=== PATIENT | female | born 1990 | race Caucasian/White ===

== ENCOUNTER 2016-09-14 11:03 | Emergency (ER) | payer OTHER, MEDICAID ==
[2016-09-14] MEDS ORDERED: IBUPROFEN 800 MG TABLET PO STA (11:38)
[2016-09-14] MEDS ORDERED: IBUPROFEN 800 MG TABLET PO ONE (11:41)
== END 2016-09-14 11:49 | disposition home or self-care (01) ==
DX: M70.841 Other soft tissue disorders related to use, overuse and pressure, right hand (principal); X50.3XXA Overexertion from repetitive movements, initial encounter; Y92.219 Unspecified school as the place of occurrence of the external cause
CPT/HCPCS: 99283; A9270

== ENCOUNTER 2016-11-05 17:54 | Emergency (ER) | payer OTHER, MEDICAID | END 2016-11-05 21:28 | disposition home or self-care (01) | DX: N93.8 Other specified abnormal uterine and vaginal bleeding (principal) ==

== ENCOUNTER 2016-11-30 22:45 | Emergency (ER) | payer OTHER, MEDICAID | END 2016-12-01 00:37 | disposition home or self-care (01) | DX: J02.9 Acute pharyngitis, unspecified (principal) ==

== ENCOUNTER 2016-12-07 18:36 | Emergency (ER) | payer OTHER, MEDICAID ==
[2016-12-07] MEDS ORDERED: AMOX/CLAV 875 MG/125 MG TABLET PO STA (20:30)
[2016-12-07] MEDS ORDERED: AMOX/CLAV 875 MG/125 MG TABLET PO ONE (20:34)
== END 2016-12-07 20:39 | disposition home or self-care (01) ==
DX: J01.00 Acute maxillary sinusitis, unspecified (principal)
CPT/HCPCS: 87070; 87430; 99283; A9270

== ENCOUNTER 2017-04-12 21:33 | Emergency (ER) | payer MEDICAID, OTHER ==
--- NOTE | 2017-04-12 22:16 | ED Physician Documentation ---
History of Present Illness - Stated complaint Stated Complaint: R ARM BUMPS - Chief complaint Chief Complaint: Ext Problem - Additonal information Additional information: hx from pt 27 y/o f recent tattoo R ant FA developed small red bumps / pusutules possible 2/2 shaving hair for tattoo seen for same in another ER already and rx what sounds like bactroban cream most bumps better now two new that are a little worse Review of Systems Constitutional: denies: Fever, Chills : denies: Now EGA (denies) Skin: reports: Lesions PD PAST MEDICAL HISTORY - Past Medical History Cardiovascular: None Respiratory: None Neuro: Headache/migraine Endocrine/Autoimmune: None GI: None 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 : None HEENT: None Psych: None Musculoskeletal: None Derm: None - Past Surgical History Past Surgical History: No - Present Medications Home Medications: Ambulatory Orders Medication Instructions Recorded Confirmed Rizatriptan Benzoate [Maxalt] 5 mg PO .FREQ PRN 08/20/16 04/12/17 Clindamycin Phosphate 1 applic TP BID PRN #15 ml 04/12/17 - Allergies Allergies/Adverse Reactions: Allergies Allergy/AdvReac Type Severity Reaction Status Date / Time adhesive Allergy Rash Verified 04/12/17 21:41 hydrocodone bitartrate * Allergy Unknown Verified 04/12/17 21:41 [From Vicodin] - Social History Does the pt smoke?: No Smoking Status: Never smoker Does the pt drink ETOH?: No Does the pt have substance abuse?: No - Immunizations Immunizations are current?: Yes - POLST Patient has POLST: No PD ED PE NORMAL - Vitals Vital signs reviewed: Yes - Cardiac Cardiac: RRR - Respiratory Respiratory: No respiratory distress, Clear bilaterally - Derm Derm: Other (abt right forarm with two pustules, no sig abscess, no cellulitis) Results - Vitals Vitals: Vital Signs - 24 hr 04/12/17 21:37 Temperature 36.2 C L Heart Rate 68 Respiratory 18 Rate Blood Pressure 110/75 O2 Saturation 100 Oxygen O2 Source Room air Departure - Departure Disposition: 01 Home, Self Care Clinical Impression: Pustule Condition: Good Prescriptions: Clindamycin Phosphate 1 applic TP BID PRN #15 ml PRN Reason: skin infection Comments: Apply warm compresses to the pustules as discussed
[2017-04-12 22:26] VITALS: BP 103/70
== END 2017-04-12 22:24 | disposition home or self-care (01) ==
LOC: ED 21:33
DX: L08.9 Local infection of the skin and subcutaneous tissue, unspecified (principal)
CPT/HCPCS: 99283

== ENCOUNTER 2017-06-03 09:45 | Emergency (ER) | payer MEDICAID ==
[2017-06-03 09:53] VITALS: BP 97/63
--- NOTE | 2017-06-03 11:03 | ED Physician Documentation ---
History of Present Illness - Stated complaint Stated Complaint: SINUS PRESSURE - Chief complaint Chief Complaint: Heent - Additonal information Additional information: hx from pt 27 y/o f L maxillary sinus pain and pressure, PND cough no fever denies preg seen by me for sma ein past states she has not tried flonase sinus irrigation etc that I have recommended previously Review of Systems Constitutional: denies: Fever, Chills Ears: reports: Drainage/discharge. 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 : None HEENT: None Psych: None Musculoskeletal: None Derm: None - Past Surgical History Past Surgical History: No - Present Medications Home Medications: Ambulatory Orders Medication Instructions Recorded Confirmed Rizatriptan Benzoate [Maxalt] 5 mg PO .FREQ PRN 08/20/16 06/03/17 Amox/Clav 875/125 [Augmentin] 1 each PO Q12H #20 tablet 06/03/17 Fluticasone [Flonase] 1 sprays LÁZARO BID PRN #1 bottle 06/03/17 Pseudoephedrine [Sudafed] 30 mg PO Q6H PRN #20 tablet 06/03/17 - Allergies Allergies/Adverse Reactions: Allergies Allergy/AdvReac Type Severity Reaction Status Date / Time adhesive Allergy Rash Verified 04/12/17 21:41 hydrocodone bitartrate * Allergy Unknown Verified 04/12/17 21:41 [From Vicodin] - Social History Does the pt smoke?: No Smoking Status: Never smoker Does the pt drink ETOH?: No Does the pt have substance abuse?: No - Immunizations Immunizations are current?: Yes - POLST Patient has POLST: No PD ED PE NORMAL - Vitals Vital signs reviewed: Yes - HEENT HEENT: Ears normal, Moist mucous membranes, Pharynx benign, Other (L axillary sinus TTP and slight swelling, also L forntal but not swollen) - Neck Neck: Supple, no meningeal sign - Cardiac Cardiac: RRR - Respiratory Respiratory: No respiratory distress, Clear bilaterally Results - Vitals Vitals: Vital Signs - 24 hr 06/03/17 09:50 Temperature 36.6 C Heart Rate 73 Respiratory 16 Rate Blood Pressure 97/63 O2 Saturation 100 Oxygen O2 Source Room air Departure - Departure Disposition: 01 Home, Self Care Clinical Impression: Sinusitis Qualifiers: Sinusitis location: maxillary Chronicity: acute Recurrence: recurrent Qualified Code(s): J01.01 - Acute recurrent maxillary sinusitis Condition: Good Instructions: ED Sinusitis Abx Tx Prescriptions: Amox/Clav 875/125 [Augmentin] 1 each PO Q12H #20 tablet Fluticasone [Flonase] 1 sprays LÁZARO BID PRN #1 bottle PRN Reason: allergies Pseudoephedrine [Sudafed] 30 mg PO Q6H PRN #20 tablet PRN Reason: sinus congestion Comments: Most sinus infections do not need antibiotics Recommend you try several days of flonase sudafed and sinus irrigation. If you continue to have symptoms or the swelling over your left cheek worsens, then take the antibiotic Follow up with your PMD if not better - if you don't have a PMD try calling [facility] Return to the ER if worse
== END 2017-06-03 11:11 | disposition home or self-care (01) ==
LOC: ED 09:45
DX: J01.01 Acute recurrent maxillary sinusitis (principal)
CPT/HCPCS: 99283

== ENCOUNTER 2017-07-29 10:43 | Outpatient (CLI) | payer MEDICAID ==
[2017-07-29 11:17] LABS: BASOPHILS % (AUTO) 0.6 %; EOSINOPHILS # (AUTO) 0.2 10^3/uL (0.0-0.7); EOSINOPHILS % (AUTO) 2.4 %; HCT - HEMATOCRIT 37.4 % (37.0-47.0); HGB - HEMOGLOBIN 13.3 g/dL (12.0-16.0); LYMPHOCYTES # (AUTO) 2.1 10^3/uL (1.5-3.5); LYMPHOCYTES % (AUTO) 30.8 %; MEAN CORPUSCULAR HEMOGLOBIN 32.6 pg (27.0-31.0); MEAN CORPUSCULAR HGB CONC 35.5 g/dL (32.0-36.0); MEAN CORPUSCULAR VOLUME 91.8 fL (81.0-99.0); MEAN PLATELET VOLUME 6.7 fL (7.9-10.8); MONOCYTES # (AUTO) 0.6 10^3/uL (0.0-1.0); MONOCYTES % (AUTO) 9.3 %; NEUTROPHILS # (AUTO) 3.9 10^3/uL (1.5-6.6); NEUTROPHILS % (AUTO) 56.9 %; RED BLOOD COUNT 4.08 10^6/uL (4.20-5.40); RED CELL DISTRIBUTION WIDTH 12.3 % (12.0-15.0); UNCORRECTED WHITE BLOOD COUNT 6.9 x10^3/uL; WHITE BLOOD COUNT 6.9 x10^3/uL (4.8-10.8)
[2017-07-29 11:28] LABS: ALBUMIN/GLOBULIN RATIO 1.5 (1.0-2.2); BILIRUBIN,TOTAL 0.7 mg/dL (0.2-1.0); CALCIUM 9.3 mg/dL (8.5-10.3); CREATININE 0.7 mg/dL (0.4-1.0); POTASSIUM 3.4 mmol/L (3.5-5.0); TOTAL PROTEIN 7.7 g/dL (6.7-8.2)
[2017-07-29 12:08] LABS: THYROID STIMULATING HORMONE 1.56 uIU/mL (0.34-5.60)
[2017-07-29 12:14] LABS: PROLACTIN 7.01 ng/mL
[2017-07-29 12:36] LABS: FOLLICLE STIMULATING HORMONE 4.37 mIU/mL
[2017-07-29 12:37] LABS: LUTEINIZING HORMONE 2.55 mIU/mL
[2017-08-01 16:07] LABS: DHEA SULFATE 228 mcg/dL (18-391)
[2017-08-02 11:41] LABS: TEST RESULT REPORT
== END 2017-07-29 10:44 | disposition home or self-care (01) ==
LOC: LAB 10:43
PROVIDERS: ATTEND Registered Nurse
DX: N93.9 Abnormal uterine and vaginal bleeding, unspecified (principal)
CPT/HCPCS: 36415; 80053; 81599; 82627; 82670; 83001; 83002; 84146; 84402; 84403; 84436; 84439; 84443; 85025

== ENCOUNTER 2017-08-07 13:39 | Outpatient (CLI) | payer MEDICAID ==
[2017-08-07 15:47] LABS: FOLLICLE STIMULATING HORMONE 12.87 mIU/mL
[2017-08-07 15:48] LABS: LUTEINIZING HORMONE 10.29 mIU/mL
== END 2017-08-07 13:40 | disposition home or self-care (01) ==
LOC: LAB 13:39
PROVIDERS: ATTEND Registered Nurse
DX: N92.5 Other specified irregular menstruation (principal)
CPT/HCPCS: 36415; 82670; 83001; 83002

== ENCOUNTER 2017-08-08 15:29 | Outpatient (CLI) | payer MEDICAID ==
--- NOTE | 2017-08-09 09:09 | Ultrasound Report ---
PELVIC ULTRASOUND: 08/08/2017 HISTORY: Abnormal bleeding. LMP: 08/05/2017 COMPARISON: 11/05/2016 TECHNIQUE: Real-time scanning by the wire dropper with saved static images reviewed. Transabdominal approach for global evaluation, endovaginal approach for detailed assessment of the endometrium. FINDINGS: Uterus 6.4 x 3.2 x 5.2 cm, volume 56 mL. Endometrial echo thickness 4 mm. Normal uterine echotexture. No fibroids are identified. Right ovary 4.0 x 1.9 x 1.5 cm, volume 6 mL, normal echotexture and blood flow. Left ovary 3.1 x 1.8 x 2.1 cm, volume 6.1 mL, normal echotexture and blood flow. Free fluid: None. IMPRESSION: NEGATIVE PELVIC ULTRASOUND. NO SIGNIFICANT INTERVAL CHANGE COMPARED TO THE PRIOR NORMAL PELVIC ULTRASOUND OF 11/05/2016. JOB #: [id number] EXT JOB #: [id number] MARIAH
== END 2017-08-08 15:30 | disposition home or self-care (01) ==
LOC: DI 15:29
PROVIDERS: ATTEND Registered Nurse
DX: N93.9 Abnormal uterine and vaginal bleeding, unspecified (principal)
CPT/HCPCS: 76830; 76856

== ENCOUNTER 2017-09-06 21:24 | Outpatient (CLI) | payer MEDICAID ==
[2017-09-06 23:36] LABS: FOLLICLE STIMULATING HORMONE 12.68 mIU/mL
[2017-09-06 23:37] LABS: LUTEINIZING HORMONE 14.09 mIU/mL
== END 2017-09-06 21:25 | disposition home or self-care (01) ==
LOC: LAB 21:24
PROVIDERS: ATTEND Registered Nurse
DX: N92.5 Other specified irregular menstruation (principal)
CPT/HCPCS: 36415; 82670; 83001; 83002

== ENCOUNTER 2017-10-15 22:17 | Emergency (ER) | payer MEDICAID ==
[2017-10-15 22:24] VITALS: BP 112/79
[2017-10-15] MEDS ORDERED: PSEUDOEPHEDRINE 30 MG TABLET PO STA (22:33)
[2017-10-15] MEDS ORDERED: BENZONATATE 100 MG CAPSULE PO STA (22:33)
[2017-10-15] MEDS ORDERED: IBUPROFEN 400 MG TABLET PO STA (22:33)
--- NOTE | 2017-10-15 22:36 | ED Physician Documentation ---
PD HPI URI - Stated complaint Stated Complaint: CHILLS/COUGH/CONGESTION - Chief complaint Chief Complaint: Heent - History obtained from History obtained from: Patient - History of Present Illness Timing - onset: How many days ago (4) Timing details: Gradual onset, Still present Associated symptoms: Fever, Chills, Nasal congestion, Rhinorrhea, Sore throat, Dry cough Contributing factors: Sick contact Similar symptoms before: No diagnosis Recently seen: Not recently seen - Additional information Additional information: Patient is a 27 year old female with no significant past medical history who is presenting to the emergency department for uri symptoms for the last 4 days. 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 Review of Systems Constitutional: reports: Chills, Myalgias. denies: Fever Eyes: denies: Discharge, Irritation Ears: reports: Ear pain Nose: reports: Rhinorrhea / runny nose, Congestion, Sinus pressure / pain Throat: reports: Sore throat Cardiac: denies: Chest pain / pressure, Palpitations Respiratory: reports: Cough. denies: Wheezing GI: reports: Nausea. 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 : None HEENT: None Psych: None Musculoskeletal: None Derm: None - Past Surgical History Past Surgical History: No - Present Medications Home Medications: Ambulatory Orders Medication Instructions Recorded Confirmed Rizatriptan Benzoate [Maxalt] 5 mg PO .FREQ PRN 08/20/16 09/26/17 Fluticasone [Flonase] 1 sprays LÁZARO BID PRN #1 bottle 06/03/17 09/26/17 Pseudoephedrine [Sudafed] 30 mg PO Q6H PRN #20 tablet 06/03/17 09/26/17 Benzonatate [Tessalon Perle] 100 mg PO TID #20 capsule 10/15/17 Ondansetron Odt [Zofran] 4 mg TL Q6H PRN #20 tablet 10/15/17 - Allergies Allergies/Adverse Reactions: Allergies Allergy/AdvReac Type Severity Reaction Status Date / Time adhesive Allergy Rash Verified 10/15/17 22:24 hydrocodone bitartrate * Allergy Unknown Verified 10/15/17 22:24 [From Vicodin] - Social History Does the pt smoke?: No Smoking Status: Never smoker Does the pt drink ETOH?: No Does the pt have substance abuse?: No - Immunizations Immunizations are current?: Yes - POLST Patient has POLST: No PD ED PE NORMAL - Vitals Vital signs reviewed: Yes - General General: Alert and oriented X 3 - HEENT HEENT: Atraumatic, PERRL - Neck Neck: Supple, no meningeal sign - Cardiac Cardiac: RRR, No murmur - Respiratory Respiratory: No respiratory distress - Abdomen Abdomen: Soft, Non tender, Non distended - Derm Derm: Normal color, Warm and dry, No rash - Extremities Extremities: No deformity - Neuro Neuro: Alert and oriented X 3, No motor deficit, Normal speech - Psych Psych: Normal mood PD ED PE EXPANDED - HEENT HEENT: R TM red, L TM red, Nasal congestion, Rhinorrhea, Pharyngeal erythema. No: R TM bulging, R TM retracted, L TM bulging, L TM retracted Results - Vitals Vitals: Vital Signs - 24 hr 10/15/17 22:23 Temperature 37.4 C Heart Rate 89 Respiratory 20 Rate Blood Pressure 112/79 O2 Saturation 100 Oxygen O2 Source Room air PD MEDICAL DECISION MAKING - ED course Complexity details: reviewed old records, reviewed results, re-evaluated patient , considered differential, d/w patient ED course: Patient was seen and examined at bedside. patient was treated with pseudophed, ibuprofen and tylenol. Patient was not septic appearing and was able to tolerate PO without difficulty. patient required no further inpatient work up and was stable for discharge with outpatient follow up. Departure - Departure Disposition: 01 Home, Self Care Clinical Impression: Upper respiratory infection, viral Condition: Good Instructions: ED Viral Syndrome Follow-Up: Ev Huddleston, MICKY, SALES PERFORMANCE ANALYST [Provider Admit Priv/Credential] - Prescriptions: Benzonatate [Tessalon Perle] 100 mg PO TID #20 capsule Ondansetron Odt [Zofran] 4 mg TL Q6H PRN #20 tablet PRN Reason: Nausea / Vomiting Comments: Your symptoms are likely viral in nature and should be self limited. You can take over the counter cold a flu medication. You should increase your fluid intake to at least 100oz a day. You should also make sure you get plenty of rest. You should follow up with your doctor on tuesday if your symptoms persist. You may return to the emergency department at any time for new, worsening or uncontrollable symptoms.
== END 2017-10-15 22:51 | disposition home or self-care (01) ==
LOC: ED 22:17
DX: J06.9 Acute upper respiratory infection, unspecified (principal); B97.89 Other viral agents as the cause of diseases classified elsewhere
CPT/HCPCS: 87275; 87276; 99283; A9270

== ENCOUNTER 2017-11-01 09:40 | Emergency (ER) | payer MEDICAID ==
[2017-11-01 09:54] VITALS: BP 106/72
--- NOTE | 2017-11-01 10:43 | ED Physician Documentation ---
PD HPI SKIN - Stated complaint Stated Complaint: RASH ALL OVER - Chief complaint Chief Complaint: Allergic Rx - History obtained from History obtained from: Patient - History of Present Illness Timing - onset: Today Timing - duration: Hours Timing - details: Gradual onset, Still present Location: RUE, LUE, RLE, LLE Quality / character: Itchy, Discolored Associated symptoms: Fever Contributing factors: Exposed to soap / lotion Similar symptoms before: Has not had sx before Recently seen: Not recently seen - Additional information Additional information: 27-year-old female was at home last night when her child vomited and she used some [place] directly out of the bottle onto a rag wiped on the floor in bare feet and this morning she is awake and with some erythema to the hands and feet with itching. She does not have it in other places. Review of Systems Constitutional: reports: Fever Nose: denies: Congestion Throat: denies: Sore throat Respiratory: denies: Dyspnea, Cough GI: denies: Nausea, Vomiting : denies: Dysuria, Frequency Skin: reports: Rash Musculoskeletal: reports: Extremity pain. 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 : None HEENT: None Psych: None Musculoskeletal: None Derm: None - Past Surgical History Past Surgical History: No - Present Medications Home Medications: Ambulatory Orders Medication Instructions Recorded Confirmed Rizatriptan Benzoate [Maxalt] 5 mg PO .FREQ PRN 08/20/16 09/26/17 Fluticasone [Flonase] 1 sprays LÁZARO BID PRN #1 bottle 06/03/17 09/26/17 - Allergies Allergies/Adverse Reactions: Allergies Allergy/AdvReac Type Severity Reaction Status Date / Time adhesive Allergy Rash Verified 11/01/17 09:54 hydrocodone bitartrate * Allergy Unknown Verified 11/01/17 09:54 [From Vicodin] - Social History Does the pt smoke?: No Smoking Status: Never smoker Does the pt drink ETOH?: No Does the pt have substance abuse?: No - Immunizations Immunizations are current?: Yes - POLST Patient has POLST: No PD ED PE NORMAL - Vitals Vital signs reviewed: Yes (Tachycardia) - General General: Alert and oriented X 3, No acute distress, Well developed/nourished - HEENT HEENT: Atraumatic, PERRL, EOMI - Respiratory Respiratory: No respiratory distress - Derm Derm: Normal color, Warm and dry, Other (Thers is a fine erythema to the dorsum of the hands bilaterally and to the dorsum of the feet bilaterally . The erythema is plaque like and non-specific consistent with a contact dermatitis. ) - Extremities Extremities: No deformity, No edema - Neuro Neuro: No motor deficit, No sensory deficit Eye Opening: Spontaneous Motor: Obeys Commands Verbal: Oriented GCS Score: 15 - Psych Psych: Normal mood, Normal affect Results - Vitals Vitals: Vital Signs - 24 hr 11/01/17 09:51 Temperature 37.2 C Heart Rate 105 H Respiratory 12 Rate Blood Pressure 106/72 O2 Saturation 100 Oxygen O2 Source Room air PD MEDICAL DECISION MAKING - ED course Complexity details: considered differential, d/w patient ED course: 27-year-old female with what appears to be a contact dermatitis. She is instructed to wash her hands and feet thoroughly and apply hydrocortisone cream. She will use some Benadryl today for the itching. Departure - Departure Disposition: 01 Home, Self Care Clinical Impression: Contact dermatitis Qualifiers: Contact dermatitis type: irritant Contact dermatitis trigger: detergents Qualified Code(s): L24.0 - Irritant contact dermatitis due to detergents Condition: Stable Instructions: ED Dermatitis Contact Follow-Up: [facility] [Provider Group] Forms: Activity restrictions
== END 2017-11-01 10:47 | disposition home or self-care (01) ==
LOC: ED 09:40
DX: L24.0 Irritant contact dermatitis due to detergents (principal)
CPT/HCPCS: 99282; 99283

== ENCOUNTER 2018-03-15 12:26 | Outpatient (CLI) | payer MEDICAID | END 2018-03-15 12:27 | disposition home or self-care (01) | LOC: LAB 12:26 | PROVIDERS: ATTEND Registered Nurse | DX: N91.1 Secondary amenorrhea (principal) | CPT/HCPCS: 36415; 84144; 84702 ==

== ENCOUNTER 2018-03-21 20:52 | Emergency (ER) | payer MEDICAID ==
[2018-03-21 21:52] LABS: BILIRUBIN,URINE NEGATIVE (NEGATIVE); GLUCOSE, URINE (UA) NEGATIVE (NEGATIVE); KETONES,URINE (UA) NEGATIVE (NEGATIVE); LEUKOCYTE ESTERASE, URINE TRACE (NEGATIVE); NITRITE,URINE NEGATIVE (NEGATIVE); OCCULT BLOOD,URINE NEGATIVE (NEGATIVE); PH,URINE 6.5 PH (5.0-7.5); PROTEIN,URINE NEGATIVE (NEGATIVE); UROBILINOGEN,URINE 0.2 (NORMAL) E.U./dL (NORMAL)
[2018-03-21 21:56] LABS: CLARITY,URINE CLEAR (CLEAR)
[2018-03-21 21:57] LABS: HCG UR QUAL POSITIVE
[2018-03-21 22:06] LABS: BACTERIA,URINE Many /HPF (None Seen); RBC,URINE None Seen /HPF (0-5); SQUAMOUS EPITHELIAL CELL,UR MANY Squamous (<= Few)
[2018-03-21] MEDS ORDERED: NITROFURANTOIN MACRO 100 MG CAPSULE PO STA (22:30)
[2018-03-21] MEDS ORDERED: ACETAMINOPHEN 325 MG TABLET PO STA (22:30)
--- NOTE | 2018-03-21 22:44 | ED Physician Documentation ---
PD HPI FEMALE - Stated complaint Stated Complaint: BACK PX/5 WKS PREG - Chief complaint Chief Complaint: Back Pain - History obtained from History obtained from: Patient - History of Present Illness Timing - onset: Yesterday Timing - details: Gradual onset, Still present Associated symptoms: Back pain. No: Fever, Abdominal pain, Vaginal bleeding, Vaginal discharge Contributing factors: Similar symptoms before: Treatment Recently seen: Not recently seen - Additional information Additional information: Patient is a 28 year old female approximately 5 weeks who is presenting to the emergency department for low back pain and dysuria. Patient symptoms started yesterday. patient states that she has had a uti in the past and it started like this. patient denies any fever, chills, nausea, vomiting or abdominal pain. Patient has had routine OB care. Upon initial evaluation in the emergency department patient is well appearing. Review of Systems Ten Systems: 10 systems reviewed and negative Constitutional: denies: Fever, Chills GI: denies: Vomiting : reports: Dysuria, Frequency. 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 HEENT: None Psych: None Musculoskeletal: None Derm: None - Past Surgical History Past Surgical History: No - Present Medications Home Medications: Ambulatory Orders Medication Instructions Recorded Confirmed Rizatriptan Benzoate [Maxalt] 5 mg PO .FREQ PRN 08/20/16 09/26/17 Fluticasone [Flonase] 1 sprays LÁZARO BID PRN #1 bottle 06/03/17 09/26/17 Nitrofurantoin Monohyd/M-Cryst 100 mg PO BID 5 Days capsule 03/21/18 [Macrobid 100 mg Capsule] - Allergies Allergies/Adverse Reactions: Allergies Allergy/AdvReac Type Severity Reaction Status Date / Time adhesive Allergy Rash Verified 11/01/17 09:54 hydrocodone bitartrate * Allergy Unknown Verified 11/01/17 09:54 [From Vicodin] - Social History Does the pt smoke?: No Smoking Status: Never smoker Does the pt drink ETOH?: No Does the pt have substance abuse?: No - Immunizations Immunizations are current?: Yes - POLST Patient has POLST: No PD ED PE NORMAL - Vitals Vital signs reviewed: Yes - General General: Alert and oriented X 3, No acute distress - HEENT HEENT: Atraumatic, Moist mucous membranes - Cardiac Cardiac: RRR, No murmur - Respiratory Respiratory: No respiratory distress - Abdomen Abdomen: Soft, Non tender, Non distended - Derm Derm: Normal color, Warm and dry - Extremities Extremities: No deformity - Neuro Neuro: Alert and oriented X 3 PD ED PE EXPANDED - Back Back: No: CVA TTP right, CVA TTP left Results - Vitals Vitals: Vital Signs - 24 hr 03/21/18 21:25 Temperature 36.5 C Heart Rate 77 Respiratory 16 Rate Blood Pressure 107/72 O2 Saturation 100 Oxygen O2 Source Room air - Labs Labs: Laboratory Tests 03/21/18 21:40 Urine Color YELLOW Urine Clarity CLEAR Urine pH 6.5 Ur Specific [place] 1.020 Urine Protein NEGATIVE Urine Glucose (UA) NEGATIVE Urine Ketones NEGATIVE Urine Occult Blood NEGATIVE Urine Nitrite NEGATIVE Urine Bilirubin NEGATIVE Urine Urobilinogen 0.2 (NORMAL) Ur Leukocyte Esterase TRACE H Urine RBC None Seen Urine WBC 0-3 Ur Squamous Epith Cells MANY Squamous H Urine Bacteria Many H Ur Microscopic Review INDICATED Urine Culture Comments NOT INDICATED Urine HCG, Qual POSITIVE PD MEDICAL DECISION MAKING - ED course Complexity details: reviewed old records, reviewed results, re-evaluated patient , considered differential, d/w patient ED course: Patient was seen and examined at bedside. patient was well appearing and in no distress. patient was tolerating PO without difficulty. patient was treated with macrobid and tylenol. patient was given detailed discharge and follow up instructions and was stable for outpatient follow up. - Sepsis Event Vital Signs: Vital Signs - 24 hr 03/21/18 21:25 Temperature 36.5 C Heart Rate 77 Respiratory 16 Rate Blood Pressure 107/72 O2 Saturation 100 Oxygen O2 Source Room air Departure - Departure Disposition: 01 Home, Self Care Clinical Impression: Urinary tract infection during Condition: Good Instructions: ED UTI Cystitis Female Follow-Up: Ev Huddleston CNM, INSTRUCTOR WATCH ASSEMBLY [Primary Care Provider] - Within 3 Days Prescriptions: Nitrofurantoin Monohyd/M-Cryst [Macrobid 100 mg Capsule] 100 mg PO BID 5 Days capsule Comments: Your symptoms today are being caused by a urinary tract infection. you had your first dose of antibiotics today and you will need to be on them for the next 5 days. it is also important that you stay well hydrated, doubling your fluid intake to at least 100oz of water a day. you can take tylenol as needed for pain. you should follow up with your flame planer this week. you should return to the emergency department at any time for new, worsening or uncontrollable symptoms.
[2018-03-21 23:33] VITALS: BP 111/76
== END 2018-03-21 22:55 | disposition home or self-care (01) ==
LOC: ED 20:52
DX: O99.89 Other specified diseases and conditions complicating pregnancy, childbirth and the puerperium (principal); M54.9 Dorsalgia, unspecified; Z3A.01 Less than 8 weeks gestation of pregnancy
CPT/HCPCS: 81001; 81025; 99283; A9270; 81003; 87086

== ENCOUNTER 2018-04-02 09:18 | Outpatient (CLI) | payer MEDICAID ==
--- NOTE | 2018-04-02 18:26 | Ultrasound Report ---
Procedure Date: 04/02/2018 Accession Number: [id number] / [id number] Procedure: US - OB First Trimester CPT Code: FULL RESULT: EXAM: FIRST TRIMESTER OBSTETRIC ULTRASOUND (Less than 11 weeks) EXAM DATE: 04/02/2018 11:53 AM. CLINICAL HISTORY: , dating. LMP: 02/12/2018. COMPARISONS: None. TECHNIQUE: Transabdominal and transvaginal ultrasound examination with static image documentation. ASSESSMENT: Gestational Sac: Single intrauterine. Mean gestational sac diameter: 18 mm. Embryo: CRL (crown-rump length) 9 mm = 7 weeks 0 days. Cardiac activity: 142 beats per minute. Yolk sac: 3 mm. Amniotic fluid: Not accurately assessed at this gestational age. Early placenta: Not visible at this gestational age. Other: Questionable small perigestational fluid collection demonstrated. MATERNAL STRUCTURES: Uterus: Anteverted. Unremarkable. Cervix: Closed. Right Ovary/Adnexa: Unremarkable. Left Ovary/Adnexa: Unremarkable. Free Fluid: None. Other: None. IMPRESSION: 1. Single viable intrauterine at EGA 7 weeks 0 days with MAYA 11/19/2018 based on crown-rump length, which is concordant with clinical dates. 2. Assigned dating is MYAA 11/19/2018 based on reported last menstrual period. RADIA
== END 2018-04-02 09:19 | disposition home or self-care (01) ==
LOC: DI 09:18
PROVIDERS: ATTEND Registered Nurse
DX: Z36.9 Encounter for antenatal screening, unspecified (principal)
CPT/HCPCS: 76801; 76817

== ENCOUNTER 2018-04-14 17:03 | Emergency (ER) | payer MEDICAID ==
[2018-04-14] MEDS ORDERED: ONDANSETRON ODT 4 MG TABLET TL STA (17:52)
--- NOTE | 2018-04-14 17:53 | ED Physician Documentation ---
PD HPI NVD - Stated complaint Stated Complaint: 8 WKS PREG/SOURAV/HEADACHE - Chief complaint Chief Complaint: General - History obtained from History obtained from: Patient - History of Present Illness Timing - onset: How many months ago (1) Timing - details: Waxing and waning Contributing factors: Other ( at 8 1/2 weeks gestation.) - Additonal information Additional information: The patient is a 28-year-old female, 8 weeks gestation, who presents with nausea and vomiting occur intermittently for the past month. She has had 2 episodes of vomiting today. She denies abdominal pain, fever, cough, or dysuria. She is receiving care at the [facility]. Review of Systems Constitutional: denies: Fever Nose: denies: Congestion Cardiac: denies: Chest pain / pressure Respiratory: denies: Dyspnea, Cough GI: reports: Nausea, Vomiting. denies: Abdominal Pain : reports: Now EGA (8 wks gestation.). 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 : None HEENT: None Psych: None Musculoskeletal: None Derm: None - Past Surgical History Past Surgical History: No - Present Medications Home Medications: Ambulatory Orders Medication Instructions Recorded Confirmed Rizatriptan Benzoate [Maxalt] 5 mg PO .FREQ PRN 08/20/16 09/26/17 Fluticasone [Flonase] 1 sprays LÁZARO BID PRN #1 bottle 06/03/17 09/26/17 Nitrofurantoin Monohyd/M-Cryst 100 mg PO BID 5 Days capsule 03/21/18 [Macrobid 100 mg Capsule] Ondansetron Odt [Zofran] 4 mg TL Q6H PRN #10 tablet 04/14/18 - Allergies Allergies/Adverse Reactions: Allergies Allergy/AdvReac Type Severity Reaction Status Date / Time adhesive Allergy Rash Verified 04/14/18 17:29 hydrocodone bitartrate * Allergy Unknown Verified 04/14/18 17:29 [From Vicodin] - Social History Does the pt smoke?: No Smoking Status: Never smoker Does the pt drink ETOH?: No Does the pt have substance abuse?: No - Immunizations Immunizations are current?: Yes - POLST Patient has POLST: No PD ED PE NORMAL - Vitals Vital signs reviewed: Yes (normal) - General General: Alert and oriented X 3, Well developed/nourished - HEENT HEENT: Atraumatic, Moist mucous membranes - Neck Neck: No adenopathy - Cardiac Cardiac: RRR - Respiratory Respiratory: No respiratory distress, Clear bilaterally - Abdomen Abdomen: Soft, Non tender - Back Back: No CVA TTP - Derm Derm: No rash - Extremities Extremities: No edema, No calf tenderness / cord - Neuro Neuro: Alert and oriented X 3, No motor deficit, Normal speech Results - Vitals Vitals: Oxygen O2 Source Room air - Labs Labs: Laboratory Tests 04/14/18 17:40 Urine Color YELLOW Urine Clarity CLEAR Urine pH 5.5 Ur Specific [place] >=1.030 H Urine Protein NEGATIVE Urine Glucose (UA) NEGATIVE Urine Ketones NEGATIVE Urine Occult Blood NEGATIVE Urine Nitrite NEGATIVE Urine Bilirubin NEGATIVE Urine Urobilinogen 0.2 (NORMAL) Ur Leukocyte Esterase NEGATIVE Ur Microscopic Review NOT INDICATED Urine Culture Comments NOT INDICATED Urine HCG, Qual POSITIVE PD MEDICAL DECISION MAKING - ED course Complexity details: reviewed results, re-evaluated patient, considered differential, d/w patient, d/w family ED course: The patient's presentation is most consistent with vomiting associated with . Her presentation does not suggest volume depletion, acute surgical abdomen, or urinary tract infection. Urinalysis is negative. Treatment in the emergency department included administration of Zofran 4 mg orally. This relieved the patient's symptoms. She is being discharged with prescription for Zofran. I discussed with the patient and her mother the diagnosis, symptomatic treatment and outpatient follow-up, as well as potentially worrisome signs or symptoms that should prompt reevaluation in the emergency department. - Sepsis Event Vital Signs: Oxygen O2 Source Room air Departure - Departure Disposition: 01 Home, Self Care Clinical Impression: Vomiting of , First trimester Condition: Stable Instructions: ED Preg Morning Sickness Follow-Up: Ev Huddleston CNM, HAY BUCKLER [Primary Care Provider] - Prescriptions: Ondansetron Odt [Zofran] 4 mg TL Q6H PRN #10 tablet PRN Reason: Nausea / Vomiting Comments: Drink plenty of fluids. You can use Zofran as prescribed if needed for nausea. Follow up with your rotary drill operator helper as planned. Return to the emergency department if you develop increasing abdominal pain, persistent vomiting, or otherwise worsening symptoms. Discharge Date/Time: 04/14/18 18:38
[2018-04-14 18:26] LABS: BILIRUBIN,URINE NEGATIVE (NEGATIVE); GLUCOSE, URINE (UA) NEGATIVE (NEGATIVE); KETONES,URINE (UA) NEGATIVE (NEGATIVE); LEUKOCYTE ESTERASE, URINE NEGATIVE (NEGATIVE); NITRITE,URINE NEGATIVE (NEGATIVE); OCCULT BLOOD,URINE NEGATIVE (NEGATIVE); PH,URINE 5.5 PH (5.0-7.5); PROTEIN,URINE NEGATIVE (NEGATIVE); UROBILINOGEN,URINE 0.2 (NORMAL) E.U./dL (NORMAL)
[2018-04-14 18:27] LABS: CLARITY,URINE CLEAR (CLEAR); HCG UR QUAL POSITIVE
[2018-04-14 18:40] VITALS: BP 106/68
== END 2018-04-14 18:38 | disposition home or self-care (01) ==
LOC: ED 17:03
DX: O21.9 Vomiting of pregnancy, unspecified (principal); Z3A.08 8 weeks gestation of pregnancy
CPT/HCPCS: 81003; 81025; 99283; Q0162; 80053; 81001; 83690; 84702; 85025; 87086

== ENCOUNTER 2018-04-18 09:51 | Outpatient (CLI) | payer MEDICAID ==
[2018-04-18 16:14] LABS: MUDS CUTOFF CONCENTRATIONS CUTOFF CONC BELOW:
[2018-04-18 16:36] LABS: AMPHETAMINE SCREEN,URINE NEGATIVE (NEGATIVE); BENZODIAZEPINES SCREEN, URINE NEGATIVE (NEGATIVE); COCAINE SCREEN URINE NEGATIVE (NEGATIVE); METHADONE SCREEN, URINE NEGATIVE (NEGATIVE); METHAMPHETAMINES SCREEN, URINE NEGATIVE (NEGATIVE); OPIATE SCREEN, URINE NEGATIVE (NEGATIVE); OXYCODONE SCREEN, URINE NEGATIVE (NEGATIVE); PROPOXYPHENE SCREEN, URINE NEGATIVE (NEGATIVE); TRICYCLIC ANTIDEPRESSANT,URINE NEGATIVE (NEGATIVE)
== END 2018-04-18 09:52 | disposition home or self-care (01) ==
LOC: LAB.R 09:51
PROVIDERS: ATTEND Registered Nurse
DX: Z36.9 Encounter for antenatal screening, unspecified (principal)
CPT/HCPCS: 80306; 87491; 87591

== ENCOUNTER 2018-04-18 09:59 | Outpatient (CLI) | payer MEDICAID ==
[2018-04-18 10:39] LABS: BASOPHILS # (AUTO) 0.1 10^3/uL (0.0-0.1); BASOPHILS % (AUTO) 0.8 %; EOSINOPHILS # (AUTO) 0.1 10^3/uL (0.0-0.7); EOSINOPHILS % (AUTO) 1.1 %; HGB - HEMOGLOBIN 11.7 g/dL (12.0-16.0); LYMPHOCYTES # (AUTO) 1.3 10^3/uL (1.5-3.5); LYMPHOCYTES % (AUTO) 16.9 %; MEAN CORPUSCULAR HGB CONC 36.6 g/dL (32.0-36.0); MEAN CORPUSCULAR VOLUME 90.2 fL (81.0-99.0); MEAN PLATELET VOLUME 6.7 fL (7.9-10.8); MONOCYTES # (AUTO) 0.5 10^3/uL (0.0-1.0); MONOCYTES % (AUTO) 6.8 %; NEUTROPHILS # (AUTO) 5.8 10^3/uL (1.5-6.6); NEUTROPHILS % (AUTO) 74.4 %; PLT - PLATELET COUNT 283 10^3/uL (130-450); RED BLOOD COUNT 3.55 10^6/uL (4.20-5.40); RED CELL DISTRIBUTION WIDTH 12.4 % (12.0-15.0); WHITE BLOOD COUNT 7.8 x10^3/uL (4.8-10.8)
[2018-04-18 10:47] LABS: BILIRUBIN,URINE NEGATIVE (NEGATIVE); GLUCOSE, URINE (UA) NEGATIVE (NEGATIVE); KETONES,URINE (UA) NEGATIVE (NEGATIVE); LEUKOCYTE ESTERASE, URINE TRACE (NEGATIVE); NITRITE,URINE NEGATIVE (NEGATIVE); OCCULT BLOOD,URINE NEGATIVE (NEGATIVE); PROTEIN,URINE NEGATIVE (NEGATIVE); UROBILINOGEN,URINE 0.2 (NORMAL) E.U./dL (NORMAL)
[2018-04-18 11:00] LABS: CLARITY,URINE HAZY (CLEAR)
[2018-04-18 11:04] LABS: BACTERIA,URINE Moderate /HPF (None Seen); MUCUS,URINE Few Strands; RBC,URINE None Seen /HPF (0-5); SQUAMOUS EPITHELIAL CELL,UR MANY Squamous (<= Few)
[2018-04-19 08:37] LABS: HEPATITIS C ANTIBODY NON-REACTIVE (NON-REACTIVE)
[2018-04-19 13:11] LABS: HEPATITIS B SURFACE ANTIGEN NON-REACTIVE (NON-REACTIVE)
[2018-04-19 14:01] LABS: HIV AG/AB 4TH GEN NON-REACTIVE (NON-REACTIVE)
== END 2018-04-18 10:00 | disposition home or self-care (01) ==
LOC: LAB 09:59
PROVIDERS: ATTEND Registered Nurse
DX: Z36.9 Encounter for antenatal screening, unspecified (principal)
CPT/HCPCS: 36415; 80306; 81001; 81599; 85025; 86592; 86762; 86803; 86850; 86900; 86901; 87340; 87389; 87491; 87591

== ENCOUNTER 2018-05-06 19:57 | Emergency (ER) | payer MEDICAID ==
[2018-05-06 20:02] VITALS: BP 97/72
--- NOTE | 2018-05-06 20:10 | ED Physician Documentation ---
PD HPI ABD PAIN - Stated complaint Stated Complaint: FEMALE /11WKS OB - Chief complaint Chief Complaint: General - History obtained from History obtained from: Patient - History of Present Illness Timing - onset: How many weeks ago (1 week of firm/small BMs and only 2 of them this past week.) Timing - duration: Weeks (1) Timing - details: Gradual onset, Still present Quality: Cramping (intermittently lower abd), Aching (some discomfort rectally without lumps nor bleeding with wiping.). No: Fullness/distended Radiation: No: Left flank, Right flank Improved by: BM Worsened by: No: Eating Associated symptoms: Constipation. No: Fever, Nausea, Vomiting, Diarrhea, Loss of appetite Similar symptoms before: Has not had sx before Recently seen: Not recently seen Review of Systems Constitutional: denies: Fever, Myalgias Nose: denies: Rhinorrhea / runny nose, Congestion Throat: denies: Sore throat Respiratory: denies: Cough GI: reports: Nausea, Constipation. denies: Abdominal Pain, Vomiting, Diarrhea, Hematemesis, Bloody / black stool : reports: Now EGA (10 weeks). 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 : None HEENT: None Psych: None Musculoskeletal: None Derm: None - Past Surgical History Past Surgical History: No - Present Medications Home Medications: Ambulatory Orders Medication Instructions Recorded Confirmed Ondansetron Odt [Zofran] 4 mg TL Q6H PRN #10 tablet 04/14/18 Docusate Sodium 100 mg PO DAILY #30 capsule 05/06/18 Folic Acid 1 mg PO DAILY #30 tablet 05/06/18 Glycerin Adult Supp [Glycerin] 1 each [place] ONCE PRN #1 bottle 05/06/18 Pyridoxine HCl [Vitamin B-6] 25 mg PO BID #60 tablet 05/06/18 - Allergies Allergies/Adverse Reactions: Allergies Allergy/AdvReac Type Severity Reaction Status Date / Time adhesive Allergy Rash Verified 05/06/18 20:02 hydrocodone bitartrate * Allergy Unknown Verified 05/06/18 20:02 [From Vicodin] - Social History Does the pt smoke?: No Smoking Status: Never smoker Does the pt drink ETOH?: No Does the pt have substance abuse?: No - Immunizations Immunizations are current?: Yes - POLST Patient has POLST: No PD ED PE NORMAL - Vitals Vital signs reviewed: Yes - General General: Alert and oriented X 3, No acute distress, Well developed/nourished - HEENT HEENT: Pharynx benign - Neck Neck: Supple, no meningeal sign, No adenopathy - Cardiac Cardiac: RRR, No murmur - Respiratory Respiratory: Clear bilaterally - Abdomen Abdomen: Normal bowel sounds, Soft, Non tender, Non distended, No organomegaly, Other (bedside U/S showing normal IUP at 10 weeks size and movement seen. ) - Female Female : Deferred - Rectal Rectal: Deferred - Back Back: No CVA TTP - Derm Derm: Normal color, Warm and dry, No rash - Extremities Extremities: No deformity, No tenderness to palpate, No edema, No calf tenderness / cord Results - Vitals Vitals: Vital Signs - 24 hr 05/06/18 20:00 Temperature 36.8 C Heart Rate 72 Respiratory 15 Rate Blood Pressure 97/72 O2 Saturation 100 Oxygen O2 Source Room air PD MEDICAL DECISION MAKING - ED course Complexity details: reviewed results (bedside U/S shows normal IUP with movement. ), considered differential, d/w patient - Sepsis Event Vital Signs: Vital Signs - 24 hr 05/06/18 20:00 Temperature 36.8 C Heart Rate 72 Respiratory 15 Rate Blood Pressure 97/72 O2 Saturation 100 Oxygen O2 Source Room air Departure - Departure Disposition: 01 Home, Self Care Clinical Impression: Constipation Qualifiers: Constipation type: slow transit constipation Qualified Code(s): K59.01 - Slow transit constipation Qualifiers: Weeks of gestation: 11 weeks Qualified Code(s): Z3A.11 - 11 weeks gestation of Condition: Stable Record reviewed to determine appropriate education?: Yes Instructions: ED Constipation Follow-Up: Ev Huddleston CNM, [employer] [Provider Admit Priv/Credential] - Prescriptions: Docusate Sodium 100 mg PO DAILY #30 capsule Folic Acid 1 mg PO DAILY #30 tablet Glycerin Adult Supp [Glycerin] 1 each IA ONCE PRN #1 bottle PRN Reason: Constipation Pyridoxine HCl [Vitamin B-6] 25 mg PO BID #60 tablet Comments: Drink lots of fluids. You can use vitamin B6 twice daily to reduce the amount of nausea. Continue with the Zofran in addition as needed for nausea. Sometimes the vitamins can be nauseating and so you can take just folate only for a little bit which is the most milner part. Resume the vitamins in a week or two if your nausea overall is lessened. For the constipation, try docusate once or twice daily as a stool softener. You can use a glycerin suppository rectally if you are feeling blocked at the bottom. Discharge Date/Time: 05/06/18 20:37
[2018-05-06] MEDS ORDERED: DOCUSATE SODIUM 100 MG CAPSULE PO STA (20:25)
== END 2018-05-06 20:37 | disposition home or self-care (01) ==
LOC: ED 19:57
DX: R10.30 Lower abdominal pain, unspecified (principal); K59.00 Constipation, unspecified; O26.891 Other specified pregnancy related conditions, first trimester; Z3A.11 11 weeks gestation of pregnancy
CPT/HCPCS: 99283; A9270

== ENCOUNTER 2018-06-13 10:47 | Outpatient (CLI) | payer MEDICAID | END 2018-06-13 10:48 | disposition home or self-care (01) | LOC: LAB.R 10:47 | PROVIDERS: ATTEND Registered Nurse | DX: R30.0 Dysuria (principal) | CPT/HCPCS: 87086 ==

== ENCOUNTER 2018-06-14 14:07 | Emergency (ER) | payer MEDICAID ==
[2018-06-14 14:35] LABS: BILIRUBIN,URINE NEGATIVE (NEGATIVE); GLUCOSE, URINE (UA) NEGATIVE (NEGATIVE); KETONES,URINE (UA) NEGATIVE (NEGATIVE); LEUKOCYTE ESTERASE, URINE NEGATIVE (NEGATIVE); NITRITE,URINE NEGATIVE (NEGATIVE); OCCULT BLOOD,URINE TRACE-LYSE (NEGATIVE); PROTEIN,URINE NEGATIVE (NEGATIVE); UROBILINOGEN,URINE 0.2 (NORMAL) E.U./dL (NORMAL)
[2018-06-14 14:38] LABS: CLARITY,URINE CLEAR (CLEAR)
--- NOTE | 2018-06-14 18:10 | Ultrasound Report ---
Reason: FLANK PAIN Procedure Date: 06/14/2018 Accession Number: [id number] / [id number] Procedure: US - Retroperitoneal CPT Code: FULL RESULT: EXAM: RENAL ULTRASOUND EXAM DATE: 06/14/2018 04:55 PM. CLINICAL HISTORY: FLANK PAIN. COMPARISON: ABDOMEN/PELVIS W/O 04/18/2015 10:33 PM. TECHNIQUE: Real-time scanning was performed with static images obtained. FINDINGS: Right Kidney: 9.2 x 3.5 x 5.4 cm. Normal echotexture with no stones, contour-deforming masses, or hydronephrosis. Left Kidney: 10.4 x 5.5 x 4.1 cm. Normal echotexture with no stones, contour-deforming masses, or hydronephrosis. Bladder: Bilateral jets seen. The prevoid bladder volume was 17.5 cc. The postvoid bladder volume was 0 cc. Other: None. IMPRESSION: Normal renal ultrasound. RADIA
--- NOTE | 2018-06-14 18:14 | Ultrasound Report ---
Reason: ABDOMINAL CRAMPING Procedure Date: 06/14/2018 Accession Number: [id number] / [id number] Procedure: US - OB 14+ Weeks CPT Code: FULL RESULT: EXAM: LIMITED OBSTETRICAL ULTRASOUND EXAM DATE: 06/14/2018 05:07 PM. CLINICAL HISTORY: ABDOMINAL CRAMPING. COMPARISON: PEL NON OB W/TV DOP LTD 11/05/2016 8:12 PM OB FIRST TRIMESTER 04/02/2018 11:13 AM. TECHNIQUE: Real-time sonographic evaluation of the fetus performed by the hospital personnel director. Multiple representative personal service static images were saved for review. DATING: Established EGA 17 weeks 3 days with MAYA 11/19/2018. GENERAL EVALUATION Khan . Cardiac activity: 154 bpm. movement: Visualized. Presentation: Variable Placenta: Anterior position. Amniotic fluid: Normal. MADDIE 14.6 cm. MVP 4.6 cm. MATERNAL STRUCTURES Cervix is closed but not well seen by transabdominal technique. IMPRESSION: 1. Khan live intrauterine with gestational age 17 weeks 3 days based on established MAYA. 2. Normal amniotic fluid volume. Placenta appears within normal limits. RADIA
--- NOTE | 2018-06-14 18:22 | ED Physician Documentation ---
PD HPI FEMALE - Stated complaint Stated Complaint: R SIDE PX/BACK PX-17 WEEKS PREGANT - Chief complaint Chief Complaint: UTI - History obtained from History obtained from: Patient - History of Present Illness Timing - duration: Days (3) Timing - details: Gradual onset, Intermittant Pain level max: 5 Pain level max: 0 Associated symptoms: Abdominal pain, Back pain. 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 Has another appt first week of July) Review of Systems Ten Systems: 10 systems reviewed and negative Constitutional: denies: Fever, Chills, Myalgias, Fatigue, Weight Loss Cardiac: denies: Chest pain / pressure Respiratory: denies: Dyspnea, Cough GI: reports: Abdominal Pain. denies: Nausea, Vomiting, Constipation, Diarrhea, Bloody / black stool : reports: Now EGA. 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 : None HEENT: None Psych: None Musculoskeletal: None Derm: None - Past Surgical History Past Surgical History: No - Present Medications Home Medications: Ambulatory Orders Medication Instructions Recorded Confirmed Ondansetron Odt [Zofran] 4 mg TL Q6H PRN #10 tablet 04/14/18 Docusate Sodium 100 mg PO DAILY #30 capsule 05/06/18 Glycerin Adult Supp [Glycerin] 1 each [place] ONCE PRN #1 bottle 05/06/18 [id number]/FA/Omega3/Dha/Fish Oil 06/14/18 06/14/18 [ Gummies] - Allergies Allergies/Adverse Reactions: Allergies Allergy/AdvReac Type Severity Reaction Status Date / Time adhesive Allergy Rash Verified 05/06/18 20:02 hydrocodone bitartrate * Allergy Unknown Verified 06/14/18 14:19 [From Vicodin] - Social History Does the pt smoke?: No Smoking Status: Never smoker Does the pt drink ETOH?: No Does the pt have substance abuse?: No - Immunizations Immunizations are current?: Yes - POLST Patient has POLST: No PD ED PE NORMAL - Vitals Vital signs reviewed: Yes - General General: Alert and oriented X 3, No acute distress, Well developed/nourished - HEENT HEENT: Moist mucous membranes - Neck Neck: Supple, no meningeal sign - Cardiac Cardiac: RRR, No murmur - Respiratory Respiratory: No respiratory distress, Clear bilaterally - Abdomen Abdomen: Normal bowel sounds, Soft, Non tender, Non distended - Female Female : Deferred (seen by ob yesterday. pt wants an US ) - Back Back: No CVA TTP - Derm Derm: Normal color, Warm and dry - Extremities Extremities: No deformity - Neuro Neuro: Alert and oriented X 3 - Psych Psych: Normal mood, Normal affect Results - Vitals Vitals: Vital Signs - 24 hr 06/14/18 14:15 Temperature 36.2 C L Heart Rate 94 Respiratory 20 Rate Blood Pressure 98/59 L O2 Saturation 100 Oxygen O2 Source Room air - Labs Labs: Laboratory Tests 06/14/18 14:27 Urine Color YELLOW Urine Clarity CLEAR Urine pH 6.0 Ur Specific [place] >=1.030 H Urine Protein NEGATIVE Urine Glucose (UA) NEGATIVE Urine Ketones NEGATIVE Urine Occult Blood TRACE-LYSE Urine Nitrite NEGATIVE Urine Bilirubin NEGATIVE Urine Urobilinogen 0.2 (NORMAL) Ur Leukocyte Esterase NEGATIVE Ur Microscopic Review NOT INDICATED Urine Culture Comments NOT INDICATED PD MEDICAL DECISION MAKING - ED course Complexity details: reviewed results, re-evaluated patient (denies pain), considered differential (siup, threatened ab, uti, muscle strain, kidney stone/infection) - Sepsis Event Vital Signs: Vital Signs - 24 hr 06/14/18 14:15 Temperature 36.2 C L Heart Rate 94 Respiratory 20 Rate Blood Pressure 98/59 L O2 Saturation 100 Oxygen O2 Source Room air Departure - Departure Disposition: 01 Home, Self Care Clinical Impression: Flank pain, Muscle strain Qualifiers: Weeks of gestation: 17 weeks Qualified Code(s): Z3A.17 - 17 weeks gestation of Condition: Good Instructions: Preg Prepare, Care , ED Flank Pain Uncertain Cause Follow-Up: Fabi Li DNP [Primary Care Provider] - Comments: KEEP YOUR OB APPOINTMENT SCHEDULED. MONITOR YOUR BODY MECHANICS WHEN MOVING OR LIFTING. DRINK LOTS OF WATER. IF WORSE RETURN TO THE E.R.
[2018-06-14 18:37] VITALS: BP 91/61
== END 2018-06-14 18:36 | disposition home or self-care (01) ==
LOC: ED 14:07
DX: O99.89 Other specified diseases and conditions complicating pregnancy, childbirth and the puerperium (principal); R10.9 Unspecified abdominal pain; S39.011A Strain of muscle, fascia and tendon of abdomen, initial encounter; X58.XXXA Exposure to other specified factors, initial encounter; Z3A.17 17 weeks gestation of pregnancy
CPT/HCPCS: 76770; 76805; 81001; 81003; 87086; 99283

== ENCOUNTER 2018-07-01 18:42 | Emergency (ER) | payer MEDICAID ==
[2018-07-01 18:55] VITALS: BP 108/73
--- NOTE | 2018-07-01 19:04 | ED Physician Documentation ---
PD HPI ABD PAIN - Stated complaint Stated Complaint: FEMALE /19WK OB - Chief complaint Chief Complaint: Abd Pain - History obtained from History obtained from: Patient - History of Present Illness Timing - onset: Other ( at 19 weeks and 6 days gestation had sharp left (not right in contrast to the nurse's note) pain in the pelvis yesterday and now today has greenish vaginal discharge without irritation. 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 : None HEENT: None Psych: None Musculoskeletal: None Derm: None - Past Surgical History Past Surgical History: No - Present Medications Home Medications: Ambulatory Orders Medication Instructions Recorded Confirmed Ondansetron Odt [Zofran] 4 mg TL Q6H PRN #10 tablet 04/14/18 Docusate Sodium 100 mg PO DAILY #30 capsule 05/06/18 Glycerin Adult Supp [Glycerin] 1 each [place] ONCE PRN #1 bottle 05/06/18 [id number]/FA/Omega3/Dha/Fish Oil 06/14/18 06/14/18 [ Gummies] Metronidazole [Flagyl] 500 mg PO BID #14 tablet 07/01/18 - Allergies Allergies/Adverse Reactions: Allergies Allergy/AdvReac Type Severity Reaction Status Date / Time adhesive Allergy Rash Verified 05/06/18 20:02 hydrocodone bitartrate * Allergy Unknown Verified 06/14/18 14:19 [From Vicodin] - Social History Does the pt smoke?: No Smoking Status: Never smoker Does the pt drink ETOH?: No Does the pt have substance abuse?: No - Immunizations Immunizations are current?: Yes - POLST Patient has POLST: No PD ED PE NORMAL - Vitals Vital signs reviewed: Yes - General General: Alert and oriented X 3, No acute distress - Abdomen Abdomen: Normal bowel sounds, Soft, Non tender, Other (Bedside ultrasound shows single live intrauterine with a heart rate of 143 and positive motion.) - Female Female : Geoscientist 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 (Sol CANDELARIA), Other (Modest thin white discharge with mild cervicitis but no cervical motion tenderness.) - Neuro Neuro: Alert and oriented X 3, Normal speech Results - Vitals Vitals: Vital Signs - 24 hr 07/01/18 18:52 Temperature 36.6 C Heart Rate 93 Respiratory 16 Rate Blood Pressure 108/73 O2 Saturation 99 Oxygen O2 Source Room air - Labs Labs: Microbiology 07/01/18 19:15 Wet Prep - Final Genital - Cervix Laboratory Tests 07/01/18 18:50 Urine Color YELLOW Urine Clarity CLEAR Urine pH 6.0 Ur Specific [place] >=1.030 H Urine Protein NEGATIVE Urine Glucose (UA) NEGATIVE Urine Ketones TRACE Urine Occult Blood NEGATIVE Urine Nitrite NEGATIVE Urine Bilirubin NEGATIVE Urine Urobilinogen 1 (NORMAL) Ur Leukocyte Esterase NEGATIVE Ur Microscopic Review NOT INDICATED Urine Culture Comments NOT INDICATED Departure - Departure Disposition: 01 Home, Self Care Clinical Impression: Bacterial vaginosis, 19 weeks gestation of Condition: Good Record reviewed to determine appropriate education?: Yes Instructions: ED Vaginosis Bacterial Prescriptions: Metronidazole [Flagyl] 500 mg PO BID #14 tablet Comments: Call your doctor to arrange a follow-up appointment, make the next available appointment. In the interim, return anytime if worse or if new symptoms develop.
[2018-07-01 19:19] LABS: BILIRUBIN,URINE NEGATIVE (NEGATIVE); GLUCOSE, URINE (UA) NEGATIVE (NEGATIVE); KETONES,URINE (UA) TRACE mg/dL (NEGATIVE); LEUKOCYTE ESTERASE, URINE NEGATIVE (NEGATIVE); NITRITE,URINE NEGATIVE (NEGATIVE); OCCULT BLOOD,URINE NEGATIVE (NEGATIVE); PROTEIN,URINE NEGATIVE (NEGATIVE); UROBILINOGEN,URINE 1 (NORMAL) E.U./dL (NORMAL)
[2018-07-01 19:23] LABS: CLARITY,URINE CLEAR (CLEAR)
[2018-07-01] MEDS ORDERED: metroNIDAZOLE 250 MG TABLET PO STA (19:38)
== END 2018-07-01 19:52 | disposition home or self-care (01) ==
LOC: ED 18:42
DX: O23.592 Infection of other part of genital tract in pregnancy, second trimester (principal); N76.0 Acute vaginitis; B96.89 Other specified bacterial agents as the cause of diseases classified elsewhere; Z3A.19 19 weeks gestation of pregnancy
CPT/HCPCS: 81003; 87210; 87491; 87591; 99283; A9270; 81001; 87086

== ENCOUNTER 2018-10-09 09:37 | Outpatient (CLI) | payer MEDICAID ==
--- NOTE | 2018-10-09 10:28 | PROVIDER PROGRESS NOTE ---
Subjective - Prog Note Date Prog Note Date: 10/09/18 Prog Note Time: 10:24 - Subjective Pt reports feeling: No change Subjective: 34 1/7 weeks s/p fall down 4 stairs in house, landed on her buttocks, no trauma to uterus, no bleeding or LOF, no contractions, RH+. No comlaints, active fetus. Objective - Vital Signs/Intake & Output Vital Signs: Vital Signs x48h Temp Pulse Resp BP Pulse Ox 10/09/18 09:52 36.5 C 86 18 105/72 100 - Other Results/Comments Other Results/Comments: VSS/AF ABD SNT, no bruising, gravid ux consistent with dates. Patient on monitor for approx. last 15 mnutes, no contractions, Category I tracing noted. Assessment/Plan - Problem List (1) Back pain Impression: 34 1/7 weeks, s/p minor fall down stairs, no acute injury, patient here for 2 hours prolonged monitoring of fetus. Bth mother and fetus clinically stable. Plan: 2 hours prolonged NST monitoring Home with precautions to return for bleeding or LOF or painful uterine contractions. F/U with routine OB, sooner prn.
--- NOTE | 2018-10-09 10:58 | DISCHARGE SUMMARY ---
Discharge Summary - ALLERGIES Allergies/Adverse Reactions: Allergies Allergy/AdvReac Type Severity Reaction Status Date / Time adhesive Allergy Rash Verified 05/06/18 20:02 hydrocodone bitartrate * Allergy Unknown Verified 06/14/18 14:19 [From Vicodin] - MEDICATIONS Home Medications: Ambulatory Orders Medication Instructions Recorded Confirmed Ondansetron Odt [Zofran] 4 mg TL Q6H PRN #10 tablet 04/14/18 Docusate Sodium 100 mg PO DAILY #30 capsule 05/06/18 Glycerin Adult Supp [Glycerin] 1 each [place] ONCE PRN #1 bottle 05/06/18 [id number]/FA/Omega3/Dha/Fish Oil 06/14/18 06/14/18 [ Gummies] Metronidazole [Flagyl] 500 mg PO BID #14 tablet 07/01/18
[2018-10-09 12:34] VITALS: BP 112/69
== END 2018-10-09 12:05 | disposition home or self-care (01) ==
LOC: WFO 09:37 → FBP 09:38 → WFO 12:05
PROVIDERS: ATTEND Obstetrics & Gynecology
DX: O99.89 Other specified diseases and conditions complicating pregnancy, childbirth and the puerperium (principal); M54.9 Dorsalgia, unspecified; W19.XXXA Unspecified fall, initial encounter; Z3A.34 34 weeks gestation of pregnancy
CPT/HCPCS: 99213

== ENCOUNTER 2020-06-25 16:00 | Emergency (ER) | payer OTHER, MEDICAID ==
[2020-06-25 16:10] VITALS: BP 98/75
--- NOTE | 2020-06-25 16:20 | ED Physician Documentation ---
History of Present Illness - Stated complaint Stated Complaint: FEMALE - Chief complaint Chief Complaint: General - History obtained from History obtained from: Patient - Additonal information Additional information: 4-day history of inflammation of the labia on both sides without discharge. 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 : None HEENT: None Psych: None Musculoskeletal: None Derm: None - Past Surgical History Past Surgical History: No - Present Medications Home Medications: Ambulatory Orders Medication Instructions Recorded Confirmed Ondansetron Odt [Zofran] 4 mg TL Q6H PRN #10 tablet 04/14/18 Docusate Sodium 100 mg PO DAILY #30 capsule 05/06/18 Glycerin Adult Supp [Glycerin] 1 each IN ONCE PRN #1 bottle 05/06/18 Pnv No.103/Folic/Om3s/Fish Oil 06/14/18 06/14/18 [ Gummies] metroNIDAZOLE [Flagyl] 500 mg PO BID #14 tablet 07/01/18 - Allergies Allergies/Adverse Reactions: Allergies Allergy/AdvReac Type Severity Reaction Status Date / Time adhesive Allergy Rash Verified 06/25/20 16:10 hydrocodone bitartrate * Allergy Unknown Verified 06/25/20 16:10 [From Vicodin] - Social History Does the pt smoke?: No Smoking Status: Never smoker Does the pt drink ETOH?: No Does the pt have substance abuse?: No - Immunizations Immunizations are current?: Yes - POLST Patient has POLST: No PD ED PE NORMAL - Vitals Vital signs reviewed: Yes - General General: Alert and oriented X 3, No acute distress - Female 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 Wet mount was negative. Will treat with Diflucan here pending PCR results. Departure - Departure Disposition: 01 Home, Self Care Clinical Impression: Vaginitis Qualifiers: Chronicity: acute Qualified Code(s): N76.0 - Acute vaginitis Condition: Good Record reviewed to determine appropriate education?: Yes Instructions: ED Vaginal Infec Fungal Pooja Comments: A gene test on the vaginal fluid is pending and we will call you if pertinent positive findings are found. For now this looks most like a yeast vaginitis and we are treating that here with fluconazole which is just a one-time treatment, return if worsening. Discharge Date/Time: 06/25/20 17:10
[2020-06-25] MEDS ORDERED: FLUCONAZOLE 100 MG TABLET PO STA (17:00)
[2020-06-25 19:19] LABS: CANDIDA GROUP DNA POSITIVE (NEGATIVE); CANDIDA KRUSEI DNA NEGATIVE (NEGATIVE); TRICHOMONAS VAGINALIS DNA NEGATIVE (NEGATIVE)
== END 2020-06-25 17:10 | disposition home or self-care (01) ==
LOC: ED 16:00
DX: N76.0 Acute vaginitis (principal)
CPT/HCPCS: 87210; 87481; 87661; 87801; 99283; A9270

== ENCOUNTER 2021-05-24 22:34 | Emergency (ER) | payer OTHER, MEDICAID ==
[2021-05-24 22:40] VITALS: BP 116/73
[2021-05-24] MEDS ORDERED: PROPARACAINE 0.5% OPHTH DROPS 15 ML RIGHTEYE STA (22:47)
[2021-05-24] MEDS ORDERED: NEOMYCIN/POLYMYX/DEXAMETH OPHTH DROPS 5 ML LEFTEYE STA (23:01)
--- NOTE | 2021-05-24 23:01 | ED Physician Documentation ---
PD HPI OPHTHO - Stated complaint Stated Complaint: L EYE IRRITATION - Chief complaint Chief Complaint: Heent - History obtained from History obtained from: Patient - History of Present Illness Timing - onset: Today Timing - duration: Hours Timing - details: Gradual onset, Still present Location: Left Quality / character: Burning Associated symptoms: Redness, Swelling, Discharge, FB sensation Contributing factors: Other (has had recent facial herpes) Similar symptoms before: Has not had sx before Recently seen: Clinic (is on acylovir for recurrent labial herpes) - Additional information Additional information: 31-year-old female who is on 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 She does have some foreign body sensation. She has had minimal exudate. Review of Systems Constitutional: denies: Fever Eyes: reports: Irritation. 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 - Present Medications Home Medications: Ambulatory Orders Medication Instructions Recorded Confirmed Neomycin/Poly/Dex Ophth Drops 1 drops LEFTEYE QID #5 ml 05/24/21 [Maxitrol Ophth Drops] Valacyclovir HCl [Valtrex] 500 mg PO DAILY 05/24/21 05/24/21 - Allergies Allergies/Adverse Reactions: Allergies Allergy/AdvReac Type Severity Reaction Status Date / Time adhesive Allergy Rash Verified 05/24/21 22:37 hydrocodone bitartrate * Allergy Unknown Verified 05/24/21 22:37 [From Vicodin] - Social History Does the pt smoke?: No Smoking Status: Never smoker Does the pt drink ETOH?: No Does the pt have substance abuse?: No - Immunizations Immunizations are current?: Yes - POLST Patient has POLST: No PD ED PE NORMAL - Vitals Vital signs reviewed: Yes (normal ) - General General: Alert and oriented X 3, No acute distress, Well developed/nourished - HEENT HEENT: Atraumatic, PERRL, EOMI, Other (Minimal inflammation to the lower lid on the left side laterally. Minimal palpable mass without exudate no evidence of foreign body in the conjunctivo and fluorescein does not stain any portion of the cornea) - Neck Neck: Supple, no meningeal sign, No bony TTP - Respiratory Respiratory: No respiratory distress - Derm Derm: Normal color, Warm and dry, No rash - Extremities Extremities: No deformity, No edema - Neuro Neuro: Alert and oriented X 3, eligibility technician 2-12 intact, No motor deficit, No sensory deficit, Normal speech Eye Opening: Spontaneous Motor: Obeys Commands Verbal: Oriented GCS Score: 15 - Psych Psych: Normal mood, Normal affect Results - Vitals Vitals: Vital Signs - 24 hr 05/24/21 22:37 Temperature 36.5 C Heart Rate 64 Respiratory 16 Rate Blood Pressure 116/73 O2 Saturation 100 Oxygen O2 Source Room air PD MEDICAL DECISION MAKING - ED course Complexity details: considered differential, d/w patient ED course: 31-year-old female with what appears to be clinically a stye is examined for the possibility of keratitis and there is no evidence of keratitis on today's examination. She is administered Maxitrol ophthalmic drops. Departure - Departure Disposition: 01 Home, Self Care Clinical Impression: Sty, internal Qualifiers: Laterality: left Eyelid: lower Qualified Code(s): H00.025 - Hordeolum internum left lower eyelid Condition: Stable Instructions: ED Hordeolum Follow-Up: JASON FARR DO [Primary Care Provider] - Prescriptions: Neomycin/Poly/Dex Ophth Drops [Maxitrol Ophth Drops] 1 drops LEFTEYE QID #5 ml
== END 2021-05-24 23:16 | disposition home or self-care (01) ==
LOC: ED 22:34
DX: H00.025 Hordeolum internum left lower eyelid (principal)
CPT/HCPCS: 99282; 99283; J3490

== ENCOUNTER 2021-06-23 13:33 | Emergency (ER) | payer OTHER, MEDICAID ==
[2021-06-23 13:41] VITALS: BP 106/65
--- NOTE | 2021-06-23 13:57 | ED Physician Documentation ---
PD HPI LOWER EXT INJURY - Stated complaint Stated Complaint: RT ANKLE PX - Chief complaint Chief Complaint: Ext Problem - History obtained from History obtained from: Patient - History of Present Illness PD HPI LOW EXT INJURY LOCATION: Right, Ankle Type of injury: Other (overuse) Where injury occurred: Work Timing - onset: How many weeks ago (1-2) Timing - duration: Weeks (1-2) Timing - details: Gradual onset, Still present Improved by: Rest, Immobilization Worsened by: Moving, Palpating Associated symptoms: Swelling. No: Weakness, Numbness, Tingling Contributing factors: No: Anticoagulated Similar symptoms before: Diagnosis (ankle sprain) Recently seen: Not recently seen - Additional information Additional information: 31-year-old female who sprained her ankle in 2019 did not recover well from that and has since then had some issues with pain in her ankle anytime she is on her feet for too long. She has been working extra and has significant pain in her ankle to where she is having some difficulty walking and her boss asked her to come in and be checked out. She remembers wearing a walking boot when she had her ankle sprain and she did not start this until a bit after she was seen and eventually it did help. 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 - Present Medications Home Medications: Ambulatory Orders Medication Instructions Recorded Confirmed Valacyclovir HCl [Valtrex] 500 mg PO DAILY 05/24/21 06/23/21 - Allergies Allergies/Adverse Reactions: Allergies Allergy/AdvReac Type Severity Reaction Status Date / Time adhesive Allergy Rash Verified 06/23/21 13:38 hydrocodone bitartrate * Allergy Unknown Verified 06/23/21 13:38 [From Vicodin] - Social History Does the pt smoke?: No Smoking Status: Never smoker Does the pt drink ETOH?: No Does the pt have substance abuse?: No - Immunizations Immunizations are current?: Yes - POLST Patient has POLST: No PD ED PE NORMAL - Vitals Vital signs reviewed: Yes (normal ) - General General: Alert and oriented X 3, No acute distress, Well developed/nourished - HEENT HEENT: Atraumatic, PERRL, EOMI - Respiratory Respiratory: No respiratory distress - Derm Derm: Normal color, Warm and dry, No rash - Extremities Extremities: No deformity, No edema, Other (pain to palpation over lateral ankle and talofibular ligament. ) - Neuro Neuro: Alert and oriented X 3, conductor orchestra 2-12 intact, No motor deficit, No sensory deficit, Normal speech Eye Opening: Spontaneous Motor: Obeys Commands Verbal: Oriented GCS Score: 15 - Psych Psych: Normal mood, Normal affect Results - Vitals Vitals: Vital Signs - 24 hr 06/23/21 13:38 Temperature 36.7 C Heart Rate 77 Respiratory 16 Rate Blood Pressure 106/65 O2 Saturation 100 Oxygen O2 Source Room air - Rads (name of study) ankle Radiology: Prelim report reviewed (Impression: 1. No acute osseous abnormality.), EMP read indepedently, See rad report PD MEDICAL DECISION MAKING - ED course Complexity details: reviewed results, re-evaluated patient, considered differential, d/w patient ED course: 31-year-old female with an ankle sprain that appears not to healed entirely or has healed with a long ligament resulting in frequent turning of her ankle. She is placed into an ankle stirrup after x-rays here today demonstrate no evidence of fracture. Departure - Departure Disposition: 01 Home, Self Care Clinical Impression: Ankle sprain Qualifiers: Encounter type: initial encounter Involved ligament of ankle: anterior talofibular ligament Laterality: right Qualified Code(s): S93.491A - Sprain of other ligament of right ankle, initial encounter Condition: Stable Instructions: ED Sprain Ankle W X Ray Follow-Up: JASON FARR DO [Primary Care Provider] - Forms: Activity restrictions Discharge Date/Time: 06/23/21 15:02
--- NOTE | 2021-06-23 14:11 | XRAY Report ---
PROCEDURE: Ankle 3 View RT INDICATIONS: persistent pain with use TECHNIQUE: 3 views of the ankle were acquired. COMPARISON: None. FINDINGS: BONES: No acute, displaced fracture or dislocation. The ankle mortise is maintained on these nonstre ssed views. SOFT TISSUES: No focal abnormality. IMPRESSION: 1.No acute osseous abnormality. Reviewed by: David Fuentes MD on 06/23/2021 2:09 PM PDT Approved by: David Fuentes MD on 06/23/2021 2:09 PM PDT Station ID: [id number]
== END 2021-06-23 15:02 | disposition home or self-care (01) ==
LOC: ED 13:33
DX: S93.491A Sprain of other ligament of right ankle, initial encounter (principal); X58.XXXA Exposure to other specified factors, initial encounter
CPT/HCPCS: 99282; 99283

== ENCOUNTER 2021-09-10 00:19 | Emergency (ER) | payer OTHER, MEDICAID ==
[2021-09-10 00:27] VITALS: BP 107/77
[2021-09-10 00:47] LABS: CLARITY,URINE CLEAR (CLEAR); KETONES,URINE (UA) NEGATIVE (NEGATIVE); LEUKOCYTE ESTERASE, URINE TRACE (NEGATIVE); NITRITE,URINE NEGATIVE (NEGATIVE); OCCULT BLOOD,URINE NEGATIVE (NEGATIVE); PROTEIN,URINE NEGATIVE (NEGATIVE); UROBILINOGEN,URINE 0.2 (NORMAL) E.U./dL (NORMAL)
[2021-09-10 00:48] LABS: BACTERIA,URINE Few /HPF (None Seen); BILIRUBIN,URINE NEGATIVE (NEGATIVE); GLUCOSE, URINE (UA) NEGATIVE (NEGATIVE); HCG UR QUAL NEGATIVE; RBC,URINE 0-5 /HPF (0-5); SQUAMOUS EPITHELIAL CELL,UR FEW Squamous (<= Few)
[2021-09-10] MEDS ORDERED: KETOROLAC 30 MG/ML VIAL ONE (01:27)
== END 2021-09-10 02:12 | disposition home or self-care (01) ==
LOC: ED 00:19
DX: S39.012A Strain of muscle, fascia and tendon of lower back, initial encounter (principal); X58.XXXA Exposure to other specified factors, initial encounter; Z87.440 Personal history of urinary (tract) infections
CPT/HCPCS: 81001; 81025; 87086; 96372; 99282; 99283

== ENCOUNTER 2021-12-30 13:42 | Emergency (ER) | payer OTHER, MEDICAID ==
[2021-12-30 13:51] VITALS: BP 94/68
--- NOTE | 2021-12-30 14:03 | ED Physician Documentation ---
History of Present Illness - Stated complaint Stated Complaint: FEMALE - Chief complaint Chief Complaint: General - History obtained from History obtained from: Patient - Additonal information Additional information: The patient comes to the emergency department chief complaint of vaginal burning and itching. She states that it started a couple of days ago. The patient states she has had yeast infections before and this feels similar. She has not recently been on any antibiotics. She does admit to eating more sugar than usual lately. She denies any sexually transmitted diseases that she knows of. She had a hysterectomy last year. No other complaints at this time. Review of Systems Ten Systems: 10 systems reviewed and negative Constitutional: reports: Reviewed and negative Eyes: reports: Reviewed and negative Ears: reports: Reviewed and negative Nose: reports: Reviewed and negative Throat: reports: Reviewed and negative Cardiac: reports: Reviewed and negative Respiratory: reports: Reviewed and negative GI: reports: Reviewed and negative : reports: Discharge (Mild, white, with vaginal itching and burning) Skin: reports: Reviewed and negative Musculoskeletal: reports: Reviewed and negative Neurologic: reports: Reviewed and negative Psychiatric: reports: Reviewed and negative Endocrine: reports: Reviewed and negative Immunocompromised: reports: Reviewed and negative PD PAST MEDICAL HISTORY - Past Medical History Cardiovascular: None Respiratory: None Endocrine/Autoimmune: None GI: None 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 : Other HEENT: None Psych: None Musculoskeletal: None Derm: None - Past Surgical History Past Surgical History: Yes /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 - Present Medications Home Medications: Ambulatory Orders Medication Instructions Recorded Confirmed Estradiol 0.05 mg Patch [Climara 1 patch TOP OAW 12/30/21 12/30/21 0.05 mg] Fluconazole [Diflucan] 100 mg PO DAILY #2 tablet 12/30/21 - Allergies Allergies/Adverse Reactions: Allergies Allergy/AdvReac Type Severity Reaction Status Date / Time adhesive Allergy Rash Verified 09/10/21 00:27 hydrocodone bitartrate * AdvReac Rash Verified 12/30/21 13:51 [From Vicodin] - Social History Does the pt smoke?: No Smoking Status: Never smoker Does the pt drink ETOH?: No Does the pt have substance abuse?: No - Immunizations Immunizations are current?: Yes - POLST Patient has POLST: No PD ED PE NORMAL - Vitals Vital signs reviewed: Yes - General General: Alert and oriented X 3, No acute distress, Well developed/nourished - HEENT HEENT: Atraumatic, PERRL, EOMI, Moist mucous membranes - Neck Neck: Supple, no meningeal sign - Respiratory Respiratory: No respiratory distress - Derm Derm: Normal color, Warm and dry, No rash - Extremities Extremities: No deformity - Neuro Neuro: Alert and oriented X 3 - Psych Psych: Normal mood, Normal affect Results - Vitals Vitals: Vital Signs - 24 hr 12/30/21 13:49 Temperature 36.3 C L Heart Rate 79 Respiratory 14 Rate Blood Pressure 94/68 O2 Saturation 98 Oxygen O2 Source Room air PD MEDICAL DECISION MAKING - ED course Complexity details: considered differential, d/w patient ED course: The patient had clinical symptoms consistent with vaginal candidiasis and was very familiar with the symptoms from previous bouts. I felt the patient could be treated presumptively and prescribed Diflucan for her. We have discussed indications for follow-up and return. Departure - Departure Disposition: 01 Home, Self Care Clinical Impression: Vaginal candidiasis Condition: Stable Instructions: ED Vaginal Infec Fungal Pooja Prescriptions: Fluconazole [Diflucan] 100 mg PO DAILY #2 tablet
--- OUTSIDE RECORDS SUMMARY | 2021-12-30 14:27 | EXTERNAL MEDICAL SUMMARY RPT | Continuity of Care Document ---
:1990 Author Organization [facility] Address [address] [place] [address] Phone Care Team Providers Name Role Phone Jerry Unavailable Unavailable Allergies No information. Encounters No information. Medications No information. Problems date description facility [id number] Hypoglycemia, unspecified [employer] Procedures date description facility [id number] [facility] Results No information. Vital Signs date measurement value source 20211226 weight_standard 48.53 lb 20211226 weight_metric 22.01 kg 20211226 temperature_standard 97.9 F 20211226 temperature_metric 36.61 C 20211226 respiration_rate 18 /min 20211226 height_standard 62 in 20211226 height_metric 157.48 cm 20211226 heart_rate 75 /min 20211226 BP_systolic 93 mm[Hg] 20211226 BP_diastolic 67 mm[Hg] 20211226 BMI 19.5 kg/m2
== END 2021-12-30 14:05 | disposition home or self-care (01) ==
LOC: ED 13:42
DX: B37.3 Candidiasis of vulva and vagina (principal)
CPT/HCPCS: 99282